=== PATIENT | female | born 1990 | race Caucasian/White ===

== ENCOUNTER 2019-06-29 12:03 | Emergency (ER) | payer BC ==
[~2019-06-29] VITALS: Ht 172.7 cm; Wt 117.9 kg
[~2019-06-29 12:03] MED LIST: HYDR-3454 PO
--- NOTE | 2019-06-29 13:20 | ED Lower Extremity ---
General Chief Complaint: Lower Extremity Stated Complaint: L KNEE SWELLING/HEAT Nursing Triage Note: knee scope in [facility] on friday, today complaint of pain down left leg, knee pain, swelling, and redness. states calf pain/cramping also Nursing Sepsis Screen: No Definite Risk Source: patient Exam Limitations: no limitations History of Present Illness Date Seen by Provider: Jun 29, 2019 Time Seen by Provider: 13:17 Initial Comments To ER with left knee burning sensation, warm, pain shooting down the leg. She had a arthroscopy of the left knee done on Friday in [place] for a torn meniscus. She awakened this morning with improvement in pain and swelling. She has since developed some increasing pain down the posterior lateral aspect of the left calf, she did temporarily have some redness of the left knee anteriorly this morning. She has had no fevers and no chills. The swelling is overall still improved from yesterday. Onset: just prior to arrival Severity: moderate Pain/Injury Location: left knee Method of Injury: direct blow Modifying Factors: Worse With Movement Allergies and Home Medications Allergies Coded Allergies: No Known Drug Allergies (Unverified , 05/31/13) Home Medications Hydrocodone Bit/Acetaminophen 1 Each Tablet, 1-2 TAB PO Q4H PRN for PAIN Prescribed by: THIERRY RITCHIE on 06/12/13 0647 Patient Home Medication List Home Medication List Reviewed: Yes Review of Systems Constitutional: see HPI; No chills, No fever EENTM: see HPI Respiratory: no symptoms reported Cardiovascular: see HPI, chest pain Genitourinary: no symptoms reported Musculoskeletal: no symptoms reported Skin: no symptoms reported Psychiatric/Neurological: No Symptoms Reported Past Rbedixb-Mwlzed-Dietya Hx Patient Social History Alcohol Use: Denies Use Recreational Drug Use: No Smoking Status: Never a Smoker 2nd Hand Smoke Exposure: No Recent Foreign Travel: No Contact w/Someone Who Travel: No Recent Infectious Disease Expo: No Physical Abuse: No Sexual Abuse: No Mistreated: No Immunizations Up To Date Date of Influenza Vaccine: Feb 18, 2019 Past Medical History Surgeries: Yes (Knee Scope) Respiratory: No Cardiac: Yes (HAS A "HOLE IN HEART" HAD SINCE AND NEVER CLOSED, DOESN'T CAUSE ISSUE) Neurological: No Gastrointestinal: No Musculoskeletal: No Endocrine: No Integumentary: No Blood Disorders: No Family Medical History Patient reports no known family medical history. Physical Exam Vital Signs Vital Signs - First Documented 06/29/19 12:47 Temp 36.8 Pulse 78 Resp 18 B/P (MAP) 116/83 (94) Pulse Ox 99 O2 Delivery Room Air Capillary Refill : Less Than 3 Seconds Height, Weight, BMI Height: 5'10.00" Weight: 228lbs. oz. 103.483198dm; 39.00 BMI Method: General Appearance: WD/WN, no apparent distress HEENT: PERRL/EOMI, normal ENT inspection Neck: non-tender, full range of motion Respiratory: no respiratory distress, no accessory muscle use Hips: bilateral hip non-tender, bilateral hip normal inspection, bilateral hip normal range of motion Legs: bilateral leg non-tender, bilateral leg normal inspection, bilateral leg normal range of motion Knees: left knee pain, left knee soft tissue tenderness, left knee swelling, left knee other (there are 2 incisions to the anterior left knee each closed with a single suture, there is no erythema no drainage, there is a palpable effusion but she states that this is improved from postoperatively.) Ankles: bilateral ankle non-tender, bilateral ankle normal inspection, bilateral ankle normal range of motion Feet: bilateral foot non-tender, bilateral foot normal inspection, bilateral foot normal range of motion Neurologic/Psychiatric: alert, normal mood/affect, oriented x 3 Skin: normal color, warm/dry Progress/Results/Core Measures Results/Orders Lab Results Laboratory Tests Test 06/29/19 14:05 Range/Units White Blood Count 8.8 4.3-11.0 10^3/uL Red Blood Count 4.74 4.35-5.85 10^6/uL Hemoglobin 14.0 11.5-16.0 G/DL Hematocrit 42 35-52 % Mean Corpuscular Volume 88 80-99 FL Mean Corpuscular Hemoglobin 30 25-34 PG Mean Corpuscular Hemoglobin Concent 33 32-36 G/DL Red Cell Distribution Width 13.8 10.0-14.5 % Platelet Count 236 130-400 10^3/uL Mean Platelet Volume 10.0 7.4-10.4 FL Neutrophils (%) (Auto) 56 42-75 % Lymphocytes (%) (Auto) 37 12-44 % Monocytes (%) (Auto) 5 0-12 % Eosinophils (%) (Auto) 2 0-10 % Basophils (%) (Auto) 0 0-10 % Neutrophils # (Auto) 5.0 1.8-7.8 X 10^3 Lymphocytes # (Auto) 3.3 1.0-4.0 X 10^3 Monocytes # (Auto) 0.4 0.0-1.0 X 10^3 Eosinophils # (Auto) 0.2 0.0-0.3 10^3/uL Basophils # (Auto) 0.0 0.0-0.1 10^3/uL C-Reactive Protein High Sensitivity 1.97 H 0.00-0.50 MG/DL My Orders Orders - PAULY CUEVAS APRN Cbc With Automated Diff (06/29/19 13:11) Hs C Reactive Protein (06/29/19 13:11) Erythrocyte Sedimentation Rate (06/29/19 13:11) Us Venous Lower Ext Lt (06/29/19 13:11) Vital Signs/I&O 06/29/19 12:47 Temp 36.8 Pulse 78 Resp 18 B/P (MAP) 116/83 (94) Pulse Ox 99 O2 Delivery Room Air Blood Pressure Mean: 94 Diagnostic Imaging Diagonstic Imaging: Ultrasound Comments NAME: SINDI ANGEL [facility] REC#: [id number] PT STATUS: REG ER : 1990 PHYSICIAN: PAULY CUEVAS APRN ADMIT DATE: 06/29/19/ER Draft Date of Exam:06/29/19 US VENOUS LOWER EXT LT PROCEDURE: US left lower extremity venous. TECHNIQUE: Multiple real-time grayscale images were obtained over the left lower extremity in various projections. Additional duplex Doppler and color Doppler images were also obtained. INDICATION: Status post recent knee surgery, complaining of left calf pain. FINDINGS: There is no evidence of left lower extremity DVT. Left lower extremity deep venous system shows normal compressibility with normal response to augmentation and Valsalva. No fluid collection or mass is detected. IMPRESSION: No evidence of left lower extremity DVT. Dictated on workstation # [id number] Dict: 06/29/19 1357 Trans: 06/29/19 1359 TS [id number] Interpreted by: CLAUDIA GROSSMAN MD Electronically signed by: Departure Impression Primary Impression: Left knee pain Qualified Codes: M25.562 - Pain in left knee Disposition: 01 HOME, SELF-CARE Condition: Stable Departure-Patient Inst. Decision time for Depature: 14:42 Referrals: NO,LOCAL PHYSICIAN (PCP) Primary Care Physician Patient Instructions: Knee Pain (DC) Add. Discharge Instructions: 1. Return to ER for any fevers chills increasing redness or other concerns. Follow-up with orthopedic surgeon. Call them today to let them know of the issue that you had. All discharge instructions reviewed with patient and/or family. Voiced unders tankely. PAULY CUEVAS APRN Jun 29, 2019 13:19
--- NOTE | 2019-06-29 14:00 | Diagnostic Imaging Report ---
PROCEDURE: US left lower extremity venous. TECHNIQUE: Multiple real-time grayscale images were obtained over the left lower extremity in various projections. Additional duplex Doppler and color Doppler images were also obtained. INDICATION: Status post recent knee surgery, complaining of left calf pain. FINDINGS: There is no evidence of left lower extremity DVT. Left lower extremity deep venous system shows normal compressibility with normal response to augmentation and Valsalva. No fluid collection or mass is detected. IMPRESSION: No evidence of left lower extremity DVT. Dictated by: Dictated on workstation # [id number]
[2019-06-29 14:21] LABS: BASOPHILS % (AUTO) 0 % (0-10); EOSINOPHILS # (AUTO) 0.2 10^3/uL (0.0-0.3); EOSINOPHILS % (AUTO) 2 % (0-10); HEMATOCRIT 42 % (35-52); LYMPHOCYTES # (AUTO) 3.3 X 10^3 (1.0-4.0); LYMPHOCYTES % (AUTO) 37 % (12-44); MEAN CORPUSCULAR HEMOGLOBIN 30 PG (25-34); MEAN CORPUSCULAR HGB CONC 33 G/DL (32-36); MEAN CORPUSCULAR VOLUME 88 FL (80-99); MONOCYTES # (AUTO) 0.4 X 10^3 (0.0-1.0); MONOCYTES % (AUTO) 5 % (0-12); NEUTROPHILS % (AUTO) 56 % (42-75); PLATELET COUNT 236 10^3/uL (130-400); RED CELL DISTRIBUTION WIDTH 13.8 % (10.0-14.5); WHITE BLOOD COUNT 8.8 10^3/uL (4.3-11.0)
[2019-06-29 14:42] LABS: ERYTHROCYTE SEDIMENTATION RATE 4 MM/HR (0-20)
[2019-06-29 15:45] VITALS: BP 116/83
== END 2019-06-29 15:45 | disposition home or self-care (01) ==
LOC: EDUNIT# 12:03 → ER 12:05
DX: M25.562 Pain in left knee (principal)
CPT/HCPCS: 36415; 85025; 85652; 86141; 99282

== ENCOUNTER 2022-02-07 10:43 | Outpatient (CLI) | payer BC ==
[~2022-02-07] VITALS: Ht 175.3 cm; Wt 106.1 kg
[2022-02-07 11:05] VITALS: BP 115/70
[2022-02-07 11:25] VITALS: BP 109/60
[2022-02-07 11:40] VITALS: BP 108/59
[2022-02-07 11:47] LABS: BILIRUBIN,URINE NEGATIVE (NEGATIVE); CLARITY,URINE CLEAR; COLOR,URINE YELLOW; GLUCOSE, URINE (UA) NEGATIVE (NEGATIVE); KETONES,URINE NEGATIVE (NEGATIVE); LEUKOCYTE ESTERASE ,URINE NEGATIVE (NEGATIVE); NITRITE,URINE NEGATIVE (NEGATIVE); PROTEIN,URINE NEGATIVE (NEGATIVE)
[2022-02-07 11:55] VITALS: BP 105/57
[2022-02-07 12:04] LABS: BACTERIA,URINE NEGATIVE /HPF; RBC,URINE RARE /HPF
[2022-02-07 12:10] VITALS: BP 104/57
--- NOTE | 2022-02-08 08:20 | Physician Query-Final Dx ---
SARAH02/08/22 0820: Clinic Account Progress/Dx Physician Query: Please give diagnosis Please include # weeks gestation Date of Service Feb 07, 2022 at 10:43 RAKESH LOJA DO 02/11/22 0715: Clinic Account Progress/Dx DIAGNOSIS: Diagnosis 27 week twin Vaginal discharge SARAH,AprFeb 08, 2022 08:20 RAKESH LOJA DO Feb 11, 2022 07:15
== END 2022-02-07 12:24 ==
LOC: LDRP 10:43 → WSo 10:43
PROVIDERS: ATTEND Obstetrics & Gynecology
DX: O26.852 Spotting complicating pregnancy, second trimester (principal); Z3A.27 27 weeks gestation of pregnancy
CPT/HCPCS: 81000; 87088; 99213

== ENCOUNTER 2022-03-07 20:33 | Outpatient (CLI) | payer BC ==
[~2022-03-07] VITALS: Ht 175.2 cm; Wt 113.4 kg
[2022-03-07 21:00] LABS: BILIRUBIN,URINE NEGATIVE (NEGATIVE); CLARITY,URINE CLEAR; COLOR,URINE YELLOW; GLUCOSE, URINE (UA) NEGATIVE (NEGATIVE); KETONES,URINE NEGATIVE (NEGATIVE); LEUKOCYTE ESTERASE ,URINE NEGATIVE (NEGATIVE); NITRITE,URINE NEGATIVE (NEGATIVE); PH,URINE 6.5 (5-9); PROTEIN,URINE NEGATIVE (NEGATIVE)
[2022-03-07 21:14] LABS: BACTERIA,URINE TRACE /HPF; SQUAMOUS EPITHELIAL CELL,UR 25-50 /HPF; WBC,URINE RARE /HPF
[2022-03-07 21:19] VITALS: BP 117/58
--- NOTE | 2022-03-08 08:15 | Physician Query-Final Dx ---
SARAH03/08/22 0815: Clinic Account Progress/Dx Physician Query: Please give diagnosis Please include # weeks gestation Date of Service Mar 07, 2022 at 20:33 RAKESH LOJA DO 03/08/22 0929: Clinic Account Progress/Dx DIAGNOSIS: Diagnosis 33 week IUP Monodi twin Vaginal discharge SARAH,AprMar 08, 2022 08:15 RAKESH LOJA DO Mar 08, 2022 09:29
== END 2022-03-07 21:30 | disposition home or self-care (01) ==
LOC: LDRP 20:33 → WSo 20:33
PROVIDERS: ATTEND Obstetrics & Gynecology
DX: O30.033 Twin pregnancy, monochorionic/diamniotic, third trimester (principal); O26.853 Spotting complicating pregnancy, third trimester; Z3A.33 33 weeks gestation of pregnancy
CPT/HCPCS: 81000; 99213

== ENCOUNTER 2022-07-13 20:51 | Emergency (ER) | payer BC ==
[~2022-07-13] VITALS: Ht 175 cm; Wt 113.3 kg
[2022-07-13] MEDS ORDERED: NEOMY/POLYM/HC (CORTISPORIN) 10 ML BTL OT STA (21:11)
[2022-07-13] MEDS ORDERED: KETOROLAC 30 MG/ML VIAL IM ONE (21:15)
[2022-07-13] MEDS ORDERED: diphenhydrAMINE 50 MG/ML INJ (BENADRYL) IM ONE (21:15)
[2022-07-13] MEDS ORDERED: PROCHLORPERAZINE 10 MG/2ML INJ (COMPAZINE) IM ONE (21:15)
--- NOTE | 2022-07-13 21:26 | ED Headache ---
General Chief Complaint: Head/Cervical Problems Stated Complaint: HEAD PAIN Nursing Triage Note: pt seen yesterday at [facility] for left ear pain. pt was given flonase and told that her ear canal was swollen d/t allergies. this afternoon, pt developed "splitting headache" that starts in left temporal area and radiates up to crown of head. pt took 1500mg tylenol and 800mg ibuprofen. pt has hx of migraines. Source: patient Exam Limitations: no limitations History of Present Illness Date Seen by Provider: Jul 13, 2022 Time Seen by Provider: 20:52 Initial Comments 32-year-old female with no pertinent past medical history coming in as referral from [facility] due to left ear pain and headache. Started this afternoon left temporal headache, radiating across the forehead. Has typical migraines which is not very unusual for her, but typically on the other side of her head. She took Tylenol and ibuprofen earlier on today. Denies any trauma. [facility], was told that her ear canal seems swollen, could be allergies, and they recommended Flonase. Otherwise she is unsure if she has had any fevers, no nausea, vomiting, diarrhea, vision changes, weakness, numbness, chest pain, shortness of breath, or any other concerns. Allergies and Home Medications Allergies Coded Allergies: No Known Drug Allergies (Unverified , 05/31/13) Patient Home Medication List Home Medication List Reviewed: Yes No Active Prescriptions or Reported Meds Review of Systems Review of Systems Constitutional: No fever Eyes: No Symptoms Reported Ears, Nose, Mouth, Throat: see HPI Respiratory: no symptoms reported Cardiovascular: no symptoms reported Gastrointestinal: no symptoms reported Genitourinary: no symptoms reported Musculoskeletal: no symptoms reported Psychiatric/Neurological: See HPI Past Lvapsdq-Qetgmy-Basjla Hx Patient Social History Tobacco Use?: No Substance use?: No Alcohol Use?: No Pt feels they are or have been: No Immunizations Up To Date Influenza Vaccine Up-to-Date: Yes; Up-to-Date Past Medical History Surgeries: Yes (Knee Scope) Respiratory: No Cardiac: Yes (HAS A "HOLE IN HEART" HAD SINCE AND NEVER CLOSED, DOESN'T CAUSE ISSUE) Neurological: No Last Menstrual Period: Jul 13, 2021 Gastrointestinal: No Musculoskeletal: No Endocrine: No Integumentary: No Blood Disorders: No Family Medical History Patient reports no known family medical history. Physical Exam Vital Signs Vital Signs - First Documented 07/13/22 20:57 Temp 36.9 Pulse 81 Resp 20 B/P (MAP) 133/80 (97) Pulse Ox 96 O2 Delivery Room Air Capillary Refill : Less Than 3 Seconds Height, Weight, BMI Height: 5'10.00" Weight: 228lbs. oz. 103.782512uv; 36.00 BMI Method: General Appearance: WD/WN, no apparent distress HEENT: PERRL/EOMI, pharynx normal, other (Left TM normal but canal is swollen, red, and narrow on the left side, less so on the right, there is pain with movement of her pinna on the left, no pain over mastoid process) Neck: non-tender, full range of motion, supple, normal inspection Cardiovascular: regular rate, rhythm, no edema, no murmur Respiratory: chest non-tender, lungs clear, normal breath sounds, no respiratory distress, no accessory muscle use Gastrointestinal: normal bowel sounds, non tender, soft; No distended, No guarding, No rebound Back: normal inspection, no CVA tenderness Extremities: normal range of motion, non-tender, normal inspection, no pedal edema, no calf tenderness, normal capillary refill Psychiatric: alert Crainal Nerves: normal hearing, normal speech, PERRL Coordination/Gait: normal gait Motor/Sensory: no motor deficit Skin: normal color, warm/dry Lymphatic: no adenopathy Progress/Results/Core Measures Results/Orders My Orders Orders - KIEL CATES MD Neomy/Poly/Hc Otic Suspension (Cortispor (07/13/22 21:11) Diphenhydramine Injection (Benadryl Inje (07/13/22 21:15) Prochlorperazine Injection (Compazine In (07/13/22 21:15) Ketorolac Injection (Toradol Injection) (07/13/22 21:15) Vital Signs/I&O 07/13/22 20:57 Temp 36.9 Pulse 81 Resp 20 B/P (MAP) 133/80 (97) Pulse Ox 96 O2 Delivery Room Air Blood Pressure Mean: 97 Progress Progress Note : Progress Note 32-year-old female presenting for left ear pain and headache. ABCs were intact and vitals were stable on presentation. Physical exam consistent with otitis externa on the left, likely early developing on the right. Tympanic membranes appear normal. We will do otic suspension antibiotics here and she can go home with them. Also gave IM injections for her headache which is not uncommon for her. Clinically she is well-appearing otherwise and no signs of malignant otitis externa or other more concerning etiology. I believe she is otherwise stable for discharge with outpatient follow-up. She was sent home with strict return precautions Departure Impression Primary Impression: Otitis externa Qualified Codes: H60.392 - Other infective otitis externa, left ear Disposition: HOME, SELF-CARE Condition: Stable Departure-Patient Inst. Decision time for Depature: 22:00 Referrals: [facility] (PCP/Family) Primary Care Physician Patient Instructions: Outer Ear Infection ED Add. Discharge Instructions: Use the antibiotic drops you received in the emergency department. Put 3 drops in your ear 4 times a day for 7 days. If you are not having improvement in the next 3 days, you can go to the pharmacy and fill the prescription of antibiotics that will be sent that will be oral. Continue to take ibuprofen and/or Tylenol every 6 hours as needed for pain. Scripts Ofloxacin (Ofloxacin) 300 Mg Tablet 300 MG PO BID for 7 Days, #14 TAB Prov: KIEL CATES MD 07/13/22 Work/School Note: Family Work Note, Patient Received Medical Care In the Emergency Department On: Jul 13, 2022 Patient Will Be Able to Return to Work/School On: Jul 14, 2022 Work Release Form Date Seen in the Emergency Department: Jul 13, 2022 Return to Work: Jul 14, 2022 Restrictions: No Restrictions KIEL CATES MD Jul 13, 2022 21:26
[2022-07-13] MEDS ORDERED: [UNRECOGNIZED DRUG - CODE] PO (21:27)
[2022-07-13] MEDS ORDERED: RX-NEO/POLYB/HC OTIC (CORTISPORIN) SUSP 10 ML BTL OT STA (21:34)
[2022-07-13 21:50] VITALS: BP 124/77
== END 2022-07-13 21:58 | disposition home or self-care (01) ==
LOC: EDUNIT# 20:51 → ER 20:53
DX: H60.92 Unspecified otitis externa, left ear (principal)
CPT/HCPCS: 99284

== ENCOUNTER → 2022-10-02 | Outpatient (CLI) | payer BC ==
[~2022-10-02] VITALS: Ht 175.5 cm; Wt 113.6 kg
[~2022-10-02] MED LIST changes: +GADOTERATE 0.5 MMOL/ML (CLARISCAN) 15 ML VIAL IV ONE; +IOHEXOL 300 MG/ML 50 ML (OMNIPAQUE 300) VIAL IV ONE; +LIDOCAINE 1% INJ 10 ML VIAL INJ ONE; +LIDOCAINE 1% INJ 10 ML VIAL ONE; +[UNRECOGNIZED DRUG - CODE] PO
--- NOTE | 2022-10-02 18:06 | Diagnostic Imaging Report ---
INDICATION: Left elbow injury. Patient was brought to the procedure room, placed on table in prone position. The lateral aspect of the left elbow was prepped and draped in usual sterile fashion. Small amount of 1% lidocaine was utilized for local anesthesia. A 23-gauge needle was advanced and placed into the radiocapitellar space. Approximately 10 mL of iodinated contrast, normal saline and gadolinium was injected under fluoroscopic observation. 33 seconds of fluoroscopic time was utilized. Needle was removed and hemostasis was obtained. Patient tolerated the procedure well and was sent to MRI in satisfactory condition. IMPRESSION: Successful left elbow injection of gadolinium contrast solution, using fluoroscopy. Dictated by: Dictated on workstation # [id number]
--- NOTE | 2022-10-02 23:28 | Diagnostic Imaging Report ---
EXAMINATION: Magnetic resonance imaging of the left elbow with intra-articular contrast. DATE: October 02, 2022. COMPARISON: Left elbow arthrogram October 02, 2022. HISTORY: 32-year-old female, left elbow pain. TECHNIQUE: Magnetic Resonance Imaging sequences were performed of the elbow following the intra-articular administration of contrast. FINDINGS: LIGAMENTS: The anterior band of the medial ulnar collateral ligament complex is intact. The posterior band also appears intact. The lateral ulnar collateral ligament, radial collateral ligament and annular ligaments are intact. MUSCLES AND TENDONS: The proximal common flexor and common extensor tendons are intact. The distal biceps muscle and tendon and the attachment site at the radial tubercle are intact. The distal brachialis muscle and tendon and its insertion on the ulna are intact. The distal triceps muscle and tendon and the attachment site at the olecranon are intact. JOINTS: There is no identified intra-articular body or prominent synovitis. There is no discretely identified cartilage defect. BONE: The bones all have normal configuration. The bone marrow signal is within normal limits. Specifically, negative for fracture, osteomyelitis, osteonecrosis, or marrow replacing process. SOFT TISSUE: The bursae and soft tissues around the elbow are within normal limits. IMPRESSION: 1. Intact medial and lateral ulnar collateral ligament complexes. 2. Intact muscles and tendons. 3. No acute fracture, bone contusion or other notable bone marrow signal abnormality. 4. Unremarkable evaluation of the elbow joint. 5. Unremarkable MRI arthrogram evaluation of the left elbow. Dictated by: Dictated on workstation # [id number]
== END ==
LOC: RAD 13:55
PROVIDERS: ATTEND Family Medicine Sports Medicine
DX: M77.12 Lateral epicondylitis, left elbow (principal); M25.322 Other instability, left elbow
CPT/HCPCS: 24220; 73085; 73222

== ENCOUNTER → 2022-10-18 | Outpatient (RCR) | payer BC ==
[~2022-10-18] MED LIST changes: -GADOTERATE 0.5 MMOL/ML (CLARISCAN) 15 ML VIAL IV ONE; -IOHEXOL 300 MG/ML 50 ML (OMNIPAQUE 300) VIAL IV ONE; -LIDOCAINE 1% INJ 10 ML VIAL INJ ONE; -LIDOCAINE 1% INJ 10 ML VIAL ONE
== END | disposition home or self-care (01) ==
PROVIDERS: ATTEND Physical Therapist
DX: M54.16 Radiculopathy, lumbar region (principal); M54.14 Radiculopathy, thoracic region; M54.2 Cervicalgia

== ENCOUNTER 2022-10-25 08:15 | Outpatient (RCR) | payer BC | END 2022-11-18 | disposition home or self-care (01) | PROVIDERS: ATTEND Physical Therapist | DX: M54.16 Radiculopathy, lumbar region (principal); M54.14 Radiculopathy, thoracic region; M54.12 Radiculopathy, cervical region ==